=== PATIENT | male | born 1995 | race Caucasian/White ===

== ENCOUNTER 2017-02-05 03:52 | Emergency (ER) | payer MEDICAID ==
[~2017-02-05] VITALS: Ht 167.6 cm; Wt 82.0 kg
[2017-02-05 03:55] VITALS: Ht 167.6 cm; Wt 82.0 kg
[2017-02-05] MEDS ORDERED: LORAZEPAM (2 MG/ML PO SYG) SL ONE (04:30)
[2017-02-05] MEDS ORDERED: LORA1TAB PO (05:23)
--- NOTE | 2017-02-05 05:28 | ERD ---
ER Documentation Chief Complaint Date/Time DATE: 02/05/17 TIME: 05:25 Chief Complaint cough x 1 weeks, sob today, anxiety HPI This is a 21-year-old male presents to the ER for anxiety for the last 3 days. Patient states that he wakes up feeling very anxious with chest pain and shortness of breath. He states he feels as if the room is closing in on him. He is also complaining of bilateral hand tingling and numbness. Patient begins to cry a lot. He has had anxiety over the last 5 years however this episode has been the worst. He denies any suicidal ideations. ROS 12 point review of systems was done, all negative except per HPI. Medications Home Meds Active Scripts Lorazepam* (Lorazepam*) 1 Mg Tablet, 1 MG PO Q8, #10 TAB Prov:PIOTR SHUKLA Carmel 02/05/17 Allergies Allergies: Coded Allergies: No Known Allergy (Unverified , 02/05/17) PMhx/Soc Hx Psychiatric Problems: Yes (ANXIETY) Hx Alcohol Use: No Hx Substance Use: No Hx Tobacco Use: No Smoking Status: Never smoker Physical Exam Vitals Vital Signs Date Time Temp Pulse Resp B/P Pulse Ox O2 Delivery O2 Flow Rate FiO2 02/05/17 03:55 97.8 77 20 144/90 100 Physical Exam GENERAL: The patient is well developed and appropriate for usual state of health , in no apparent distress. HEENT: Atraumatic. CHEST: Clear to auscultation bilaterally. There are no rales, wheezes or rhonchi. HEART: Regular rate and rhythm. No murmurs, clicks, rubs or gallops. EXTREMITIES: Equal pulses bilaterally. There is no peripheral clubbing, cyanosis or edema. No focal swelling or erythema. Full range of motion. Grossly neurovascularly intact. NEURO: Alert and oriented. Cranial nerves II through XII are intact. Results 24 hrs Current Medications Medications (Trade) Dose Ordered Sig/Veronica Route PRN Reason Start Time Stop Time Status Last Admin Dose Admin Lorazepam (Ativan Intensol) 1 mg ONCE ONCE SL 02/05/17 04:30 02/05/17 04:31 DC 02/05/17 04:48 Procedures/MDM Differential diagnosis includes but is not limited to; STEMI, dissection, pneumothorax, PE, esophageal rupture, tamponade, pneumonia, pericarditis, GERD, musculoskeletal, endocarditis, anxiety. This is likely anxiety. Patient has had episodes in the past that were similar to this. EKG was taken and read by Dr. Mcclelland [address] elevation or T-wave inversion. Suspicion for cardiac etiology is low. Suspicion for pulmonary embolism is low patient does not have any PERC criteria. Patient is afebrile and otherwise well-appearing. He will be sent home with lorazepam. He needs follow-up with his primary care doctor within 1-2 days I also gave patient some referrals for a psychiatrist. My medical decision making was shared with the patient he understands and agrees with plan. Departure Diagnosis: Primary Impression: Anxiety Condition: Stable Patient Instructions: Anxiety Reaction Referrals: KAREN CALDWELL,PURA GARCIA MD Additional Instructions: Call your primary care doctor TOMORROW for an appointment during the next 1-2 days.See the doctor sooner or return here if your condition worsens before your appointment time. PIOTR SHUKLA Feb 05, 2017 05:28
--- NOTE | 2017-02-05 06:06 | RADRPT ---
PROCEDURE: Chest. CLINICAL INDICATION: Shortness of breath. TECHNIQUE: Single frontal view of the chest was obtained. COMPARISON: None. FINDINGS: The cardiac silhouette is within normal limits. The aortic arch is unremarkable. There is no focal consolidation, vascular congestion or pleural effusion. There is no pneumothorax. IMPRESSION: No evidence for active cardiopulmonary disease. .Albert Larson MD, MD Date Time Electronically viewed and signed by .Albert Larson MD, on 02/05/2017 06:05 .T/
== END 2017-02-05 06:29 | disposition home or self-care (01) ==
LOC: FTE 03:52
DX: F41.9 Anxiety disorder, unspecified (principal)
CPT/HCPCS: 71010; 93005; Z7502; Z7610

== ENCOUNTER 2017-02-06 17:58 | Emergency (ER) | payer MEDICAID ==
[~2017-02-06] VITALS: Ht 157.5 cm; Wt 80.5 kg
[~2017-02-06 17:58] MED LIST: LORA1TAB PO
[2017-02-06 18:04] VITALS: Ht 157.5 cm; Wt 80.5 kg
--- NOTE | 2017-02-06 18:40 | ERD ---
ER Documentation Chief Complaint Date/Time DATE: 02/06/17 TIME: 18:37 Chief Complaint Complains of anxiety was seen 2 days ago no change of symptoms HPI 21-year-old male presents here in emergency department for complaints of anxiety episodes for the last 2 days, was seen here in emergency department was given Ativan prescription with only mild relief. Patient continues to have anxiety episodes. Patient once stat obgyn specialist, does not have any resources. Patient denies homicidal or suicidal ideations. Patient denies any chest pain or palpitations. Patient denies any shortness of breath. Patient verbalized feeling anxious and nervous. Patient denies hallucinations or delusion. ROS All systems reviewed and are negative except as per history of present illness. Medications Home Meds Active Scripts Lorazepam* (Lorazepam*) 1 Mg Tablet, 1 MG PO Q8, #10 TAB Prov:PIOTR SHUKLA Carmel 02/05/17 Allergies Allergies: Coded Allergies: No Known Allergy (Unverified , 02/05/17) PMhx/Soc Hx Psychiatric Problems: Yes (ANXIETY) Hx Alcohol Use: No Hx Substance Use: No Hx Tobacco Use: No FmHx Family History: No coronary disease, No diabetes, No other Physical Exam Vitals Vital Signs Date Time Temp Pulse Resp B/P Pulse Ox O2 Delivery O2 Flow Rate FiO2 02/06/17 18:04 98.3 79 20 130/83 99 Physical Exam GENERAL: The patient is well developed and appropriate for usual state of health, in no apparent distress. CHEST: Clear to auscultation bilaterally. There are no rales, wheezes or rhonchi. HEART: Regular rate and rhythm. No murmurs, clicks, rubs or gallops. No S3 or S4. ABDOMEN: Soft, nontender and nondistended. Good bowel sounds. No rebound or guarding. No gross peritonitis. No gross organomegaly or masses. No Preston sign or McBurney point tenderness. BACK: No midline or flank tenderness. EXTREMITIES: Equal pulses bilaterally. There is no peripheral clubbing, cyanosis or edema. No focal swelling or erythema. Full range of motion. Grossly neurovascularly intact. NEURO: Alert and oriented. Cranial nerves 2-12 intact. Motor strength in all 4 extremities with 5/5 strength. Sensation grossly intact. Normal speech and gait. SKIN: There is no apparent rash or petechia. The skin is warm and dry. HEMATOLOGIC AND LYMPHATIC: There is no evidence of excessive bruising or lymphedema. No gross cervical, axillary, or inguinal lymphadenopathy. PSYCHIATRIC: Patient is calm and cooperative, not verbalizing homicidal or suicidal ideations. Normal affect normal mood Procedures/MDM Medical decision making: Patient symptoms is likely consistent with anxiety, no suspicion for any psychiatric emergency, not homicidal, not suicidal, is not danger to self or others. Patient does not have any hallucinations or delusions. Patient is acting normal, appropriately. Patient already is on Ativan , was advised to resume taking medications, patient was given resources for psychiatric clinics, 24-hour urgent care psychiatric clinics available, patient verbalized to possibly follow-up with them, patient is advised to follow with primary care doctor in 2-3 days, patient was given resources. Patient was advised to return to emergency department for homicidal, suicidal ideations, hallucinations or delusions, or any other worsening symptoms. Patient is currently accompanied by a friend. Departure Diagnosis: Primary Impression: Anxiety Condition: Stable Patient Instructions: Anxiety Reaction Additional Instructions: see obgyn specialist for further eval of anxiety, resources given, continue meds THEO VALENZUELA NP February 06, 2017 18:40
== END 2017-02-06 18:40 | disposition home or self-care (01) ==
LOC: FTE 17:58 → E/R 18:40
DX: F41.9 Anxiety disorder, unspecified (principal)
CPT/HCPCS: 99283